=== PATIENT | male | born 2000 | race Caucasian/White ===

== ENCOUNTER 2023-08-04 22:27 | Emergency (ER) | payer SELFPAY ==
[2023-08-04 22:44] VITALS: BP 143/76; PULSE 96; RESP 20; TEMP 97.5; BMI 20.6
[2023-08-04] MEDS: FAMOTIDINE 20 MG/50 ML IVPB 20 MG/50 ML MG IVPB ONE (23:18)
[2023-08-04] MEDS: methylPREDNISolone NA SUCC 125 MG/2 ML VIAL IVPB ONE (23:18)
[2023-08-04] MEDS ORDERED: methylPREDNISolone NA SUCC 125 MG/2 ML VIAL ONE (23:21)
[2023-08-04] MEDS ORDERED: FAMOTIDINE 20 MG/50 ML IVPB 20 MG/50 ML MG IVPB ONE (23:22)
== END 2023-08-05 01:59 | disposition home or self-care (01) ==
LOC: JER 22:27
PROC: 3E033GC Introduction of Other Therapeutic Substance into Peripheral Vein, Percutaneous Approach (ICD-10-PCS; principal; 2023-08-04)
PROC: 3E033GC Introduction of Other Therapeutic Substance into Peripheral Vein, Percutaneous Approach (ICD-10-PCS; 2023-08-04)
PROC: 3E033GC Introduction of Other Therapeutic Substance into Peripheral Vein, Percutaneous Approach (ICD-10-PCS; 2023-08-04)
DX: T78.3XXA Angioneurotic edema, initial encounter (principal); R22.0 Localized swelling, mass and lump, head
CPT/HCPCS: 99284-25